=== PATIENT | male | born 1950 | race Caucasian/White ===

== ENCOUNTER 2024-01-31 21:38 | Inpatient (IN) | payer OTHER ==
[2024-01-31 23:49] LABS: URINE APPEARANCE CLEAR; URINE BILIRUBIN NEGATIVE (NEGATIVE); URINE COLOR YELLOW; URINE GLUCOSE (UA) NEGATIVE (NEGATIVE); URINE KETONE NEGATIVE (NEGATIVE); URINE LEUK ESTERASE NEGATIVE (NEGATIVE); URINE NITRITE NEGATIVE (NEGATIVE); URINE PROTEIN NEGATIVE (NEGATIVE); URINE UROBILINOGEN 0.2 mg/dL (0.2-1.0)
[2024-01-31 23:59] LABS: BASO % 0.3 % (0-2.0); EOS % 1.6 % (0-4.5); HEMATOCRIT 38.7 % (35.4-49); HEMOGLOBIN 13.2 GM/dL (11.7-16.9); LYMPH % 6.4 % (8-40); MCHC 34.1 g/dl (32.0-35.9); MEAN CELL VOLUME 90.8 fl (80-96); MEAN PLT VOLUME 7.1 fl (7.5-11.1); MONO % 9.5 % (3.8-10.2); NEUT % 82.2 % (42.8-82.8); PLATELET COUNT 176 10^3/uL (134-434); RBC 4.26 M/mm3 (4.00-5.60); RDW 14.4 % (11.9-15.9); WHITE BLOOD COUNT 4.5 K/mm3 (4.0-10.0)
[2024-02-01 00:22] LABS: POTASSIUM 3.5 mmol/L (3.5-5.1)
[2024-02-01 00:26] LABS: ALBUMIN 3.3 g/dl (3.4-5.0); BLOOD UREA NITROGEN 19.5 mg/dL (7-18); CALCIUM 9.3 mg/dL (8.5-10.1)
[2024-02-01 00:29] LABS: CREATININE 0.9 mg/dL (0.55-1.3)
[2024-02-01 00:31] LABS: BILIRUBIN,TOTAL 0.6 mg/dL (0.2-1); TOT PROT 6.6 g/dl (6.4-8.2)
[2024-02-01] MEDS ORDERED: PIPERACILLIN/TAZOB 3.375 GM 3.375 GM/50 ML BAG IVPB ONE (08:10)
[2024-02-01] MEDS ORDERED: ACETAMINOPHEN INJECTION 100 ML ONE (08:34)
[2024-02-01] MEDS: PIPERACILLIN/TAZOB 3.375 GM 3.375 GM in DEXTROSE 5%-WATER - 50 ML IVPB ONE (08:39)
[2024-02-01] MEDS: SODIUM CHLORIDE 0.9% 500 ML INFUS.BAG IV ONE (08:39)
[2024-02-01] MEDS: ACETAMINOPHEN 1000 MG/100 ML BAG IVPB ONE (08:39)
[2024-02-01] MEDS: VANCOMYCIN PREMIX 1.5 GM 1,500 MG/300 ML BAG IVPB ONE (09:16)
[2024-02-01] MEDS: VANCOMYCIN HCL 1,500 MG in DEXTROSE 5%-WATER - 500 ML IVPB ONE (09:17)
[2024-02-01 12:31] LABS: HIV INTERPRETATION NEGATIVE (NEGATIVE)
[2024-02-01] MEDS ORDERED: ACETAMINOPHEN 325 MG TABLET (FP) ONE (14:16)
[2024-02-01] MEDS: ACETAMINOPHEN 325 MG TABLET (FP) PO PRN (14:30)
[2024-02-01 16:13] VITALS: BMI 26.9
[2024-02-01] MEDS ORDERED: INSULIN ASPART SLIDING SCALE (NOVOLOG) 1 VIAL SQ ONE (17:13)
[2024-02-01] MEDS: INSULIN ASPART SLIDING SCALE (NOVOLOG) 1 VIAL SQ SCH (17:16)
[2024-02-01] MEDS: HEPARIN NA (PORCINE) 5,000 UNITS/ML 1ML VIAL SQ SCH (21:53)
[2024-02-01] MEDS: BUDESONIDE/FORMETEROL FUMARATE 80/4.5 mcg INHALER IH SCH (21:58)
[2024-02-02] MEDS: TAMSULOSIN HCL 0.4 MG CAP PO SCH (09:13)
[2024-02-02] MEDS: FENOFIBRIC ACID 135 MG CAP PO SCH (09:13)
[2024-02-02] MEDS: FINASTERIDE 5 MG TABLET (FP) PO SCH (09:13)
[2024-02-02 09:39] LABS: BASO % 0.4 % (0-2.0); HEMATOCRIT 38.9 % (35.4-49); HEMOGLOBIN 13.3 GM/dL (11.7-16.9); LYMPH % 3.8 % (8-40); MCH 31.4 pg (25.7-33.7); MCHC 34.3 g/dl (32.0-35.9); MEAN CELL VOLUME 91.3 fl (80-96); MEAN PLT VOLUME 7.7 fl (7.5-11.1); MONO % 10.8 % (3.8-10.2); PLATELET COUNT 145 10^3/uL (134-434); RBC 4.26 M/mm3 (4.00-5.60); RDW 14.4 % (11.9-15.9); WHITE BLOOD COUNT 3.8 K/mm3 (4.0-10.0)
[2024-02-02 09:51] LABS: POTASSIUM 3.4 mmol/L (3.5-5.1)
[2024-02-02 10:00] LABS: ALBUMIN 3.2 g/dl (3.4-5.0); CALCIUM 8.9 mg/dL (8.5-10.1); TOT PROT 6.4 g/dl (6.4-8.2)
[2024-02-02 10:04] LABS: BILIRUBIN,TOTAL 0.9 mg/dL (0.2-1); CREATININE 0.8 mg/dL (0.55-1.3)
[2024-02-02] MEDS: POTASSIUM CHLORIDE ORAL LIQUID 20 MEQ/15 ML PO ONE (11:35)
[2024-02-02] MEDS: POLYETHYLENE GLYCOL (HEALTHYLAX) 3350 17 GM PACKET PO SCH (13:05)
[2024-02-02] MEDS: PIPERACILLIN/TAZOB 3.375 GM 3.375 GM in DEXTROSE 5%-WATER - 50 ML IVPB SCH (14:47)
[2024-02-02] MEDS: amLODIPine BESYLATE 5 MG TABLET (FP) PO SCH (20:32)
[2024-02-02] MEDS: MAG HYDROX/AL HYDROX/SIMETH 30 ML UNIT-DOSE CUP PO ONE (22:55)
[2024-02-03 08:24] LABS: POTASSIUM 3.6 mmol/L (3.5-5.1)
[2024-02-03 08:29] LABS: ALBUMIN 2.8 g/dl (3.4-5.0); CALCIUM 8.6 mg/dL (8.5-10.1)
[2024-02-03 08:30] LABS: BLOOD UREA NITROGEN 15.6 mg/dL (7-18); HEMATOCRIT 36.5 % (35.4-49); HEMOGLOBIN 12.5 GM/dL (11.7-16.9); MCH 31.1 pg (25.7-33.7); MCHC 34.3 g/dl (32.0-35.9); MEAN CELL VOLUME 90.8 fl (80-96); MEAN PLT VOLUME 8.1 fl (7.5-11.1); PLATELET COUNT 128 10^3/uL (134-434); RBC 4.02 M/mm3 (4.00-5.60); RDW 14.5 % (11.9-15.9); WHITE BLOOD COUNT 3.4 K/mm3 (4.0-10.0)
[2024-02-03 08:32] LABS: CREATININE 0.8 mg/dL (0.55-1.3)
[2024-02-03 08:34] LABS: BILIRUBIN,TOTAL 0.8 mg/dL (0.2-1); TOT PROT 5.9 g/dl (6.4-8.2)
[2024-02-03 09:51] LABS: ANISOCYTOSIS 0; MACROCYTOSIS 0
[2024-02-03] MEDS ORDERED: INSULIN ASPART SLIDING SCALE (NOVOLOG) 1 VIAL SQ ONE (13:04)
[2024-02-03] MEDS: PANTOPRAZOLE 40 MG TABLET PO ONE (16:27)
[2024-02-03] MEDS: MAG HYDROX/AL HYDROX/SIMETH 30 ML UNIT-DOSE CUP PO PRN (16:27)
[2024-02-04] MEDS: PANTOPRAZOLE 40 MG TABLET PO SCH (09:14)
[2024-02-04 10:25] LABS: BASO % 0.5 % (0-2.0); EOS % 4.1 % (0-4.5); HEMATOCRIT 36.4 % (35.4-49); HEMOGLOBIN 12.4 GM/dL (11.7-16.9); MCH 30.8 pg (25.7-33.7); MCHC 33.9 g/dl (32.0-35.9); MEAN CELL VOLUME 90.8 fl (80-96); MEAN PLT VOLUME 8.6 fl (7.5-11.1); MONO % 12.3 % (3.8-10.2); NEUT % 75.1 % (42.8-82.8); PLATELET COUNT 145 10^3/uL (134-434); RBC 4.01 M/mm3 (4.00-5.60); RDW 14.6 % (11.9-15.9); WHITE BLOOD COUNT 3.1 K/mm3 (4.0-10.0)
[2024-02-04 10:39] LABS: POTASSIUM 3.6 mmol/L (3.5-5.1)
[2024-02-04 10:41] LABS: CALCIUM 8.5 mg/dL (8.5-10.1)
[2024-02-04 10:42] LABS: ALBUMIN 2.9 g/dl (3.4-5.0)
[2024-02-04 10:46] LABS: BLOOD UREA NITROGEN 14.9 mg/dL (7-18); MAGNESIUM 2.1 mg/dL (1.8-2.4)
[2024-02-04 10:49] LABS: CREATININE 0.6 mg/dL (0.55-1.3)
[2024-02-04 10:52] LABS: BILIRUBIN,TOTAL 0.9 mg/dL (0.2-1); TOT PROT 6.1 g/dl (6.4-8.2)
[2024-02-04] MEDS ORDERED: INSULIN ASPART SLIDING SCALE (NOVOLOG) 1 VIAL SQ ONE ×2 (16:56→21:26)
[2024-02-04] MEDS: predniSONE 20 MG TABLET (UD) PO SCH (18:40)
[2024-02-05 06:09] LABS: CMV IgM 40.5 AU/mL (0.0-29.9)
[2024-02-05 09:58] LABS: INR 1.13 (0.83-1.09); PROTHROMBIN TIME (PATIENT) 12.7 SEC (9.7-13.0)
[2024-02-05 09:59] LABS: HEMATOCRIT 42.2 % (35.4-49); HEMOGLOBIN 14.2 GM/dL (11.7-16.9); MCH 31.2 pg (25.7-33.7); MCHC 33.7 g/dl (32.0-35.9); MEAN CELL VOLUME 92.5 fl (80-96); MEAN PLT VOLUME 8.4 fl (7.5-11.1); PLATELET COUNT 169 10^3/uL (134-434); RBC 4.56 M/mm3 (4.00-5.60); RDW 14.8 % (11.9-15.9); WHITE BLOOD COUNT 3.1 K/mm3 (4.0-10.0)
[2024-02-05] MEDS ORDERED: LOSARTAN POTASSIUM 50 MG TABLET PO SCH (10:00)
[2024-02-05 10:15] LABS: POTASSIUM 4.1 mmol/L (3.5-5.1)
[2024-02-05 10:20] LABS: ALBUMIN 3.1 g/dl (3.4-5.0); CALCIUM 9.1 mg/dL (8.5-10.1)
[2024-02-05 10:21] LABS: BLOOD UREA NITROGEN 15.7 mg/dL (7-18); MAGNESIUM 2.2 mg/dL (1.8-2.4)
[2024-02-05 10:24] LABS: CREATININE 0.8 mg/dL (0.55-1.3)
[2024-02-05 10:25] LABS: BILIRUBIN,TOTAL 0.7 mg/dL (0.2-1); TOT PROT 6.9 g/dl (6.4-8.2)
[2024-02-05] MEDS: HYDROCHLOROTHIAZIDE 25 MG TABLET (FP) PO SCH (10:29)
[2024-02-05 10:41] LABS: ANISOCYTOSIS 0; MACROCYTOSIS 0
[2024-02-05] MEDS ORDERED: INSULIN ASPART SLIDING SCALE (NOVOLOG) 1 VIAL SQ ONE (21:28)
[2024-02-06 10:07] LABS: BASO % 0.5 % (0-2.0); EOS % 0.4 % (0-4.5); HEMATOCRIT 37.7 % (35.4-49); HEMOGLOBIN 12.6 GM/dL (11.7-16.9); LYMPH % 7.7 % (8-40); MCH 30.6 pg (25.7-33.7); MCHC 33.4 g/dl (32.0-35.9); MEAN CELL VOLUME 91.8 fl (80-96); MEAN PLT VOLUME 8.6 fl (7.5-11.1); MONO % 6.3 % (3.8-10.2); NEUT % 85.1 % (42.8-82.8); PLATELET COUNT 202 10^3/uL (134-434); RBC 4.11 M/mm3 (4.00-5.60); RDW 14.7 % (11.9-15.9)
[2024-02-06 10:21] LABS: POTASSIUM 3.4 mmol/L (3.5-5.1)
[2024-02-06 10:24] LABS: CALCIUM 9.3 mg/dL (8.5-10.1)
[2024-02-06 10:25] LABS: ALBUMIN 3.2 g/dl (3.4-5.0); BLOOD UREA NITROGEN 19.6 mg/dL (7-18)
[2024-02-06 10:28] LABS: CREATININE 0.8 mg/dL (0.55-1.3)
[2024-02-06 10:29] LABS: BILIRUBIN,TOTAL 0.6 mg/dL (0.2-1)
[2024-02-06] MEDS ORDERED: INSULIN ASPART SLIDING SCALE (NOVOLOG) 1 VIAL SQ ONE ×2 (12:07→21:14)
[2024-02-06] MEDS: POTASSIUM CHLORIDE ORAL LIQUID 20 MEQ/15 ML PO ONE (12:16)
[2024-02-06 14:33] LABS: HIV INTERPRETATION NEGATIVE (NEGATIVE)
[2024-02-06 14:43] VITALS: RESP 18
[2024-02-07 06:19] VITALS: BP 139/69; PULSE 64; TEMP 97.5
[2024-02-07 10:00] LABS: BASO % 0.6 % (0-2.0); EOS % 0.8 % (0-4.5); HEMATOCRIT 37.5 % (35.4-49); HEMOGLOBIN 12.9 GM/dL (11.7-16.9); LYMPH % 7.8 % (8-40); MCH 30.9 pg (25.7-33.7); MCHC 34.4 g/dl (32.0-35.9); MEAN PLT VOLUME 8.2 fl (7.5-11.1); MONO % 11.1 % (3.8-10.2); NEUT % 79.7 % (42.8-82.8); PLATELET COUNT 225 10^3/uL (134-434); RBC 4.16 M/mm3 (4.00-5.60); RDW 14.9 % (11.9-15.9)
[2024-02-07 10:12] LABS: POTASSIUM 3.8 mmol/L (3.5-5.1)
[2024-02-07 10:19] LABS: ALBUMIN 3.2 g/dl (3.4-5.0); BLOOD UREA NITROGEN 19.1 mg/dL (7-18); CALCIUM 9.5 mg/dL (8.5-10.1)
[2024-02-07 10:22] LABS: CREATININE 0.8 mg/dL (0.55-1.3)
[2024-02-07 10:24] LABS: BILIRUBIN,TOTAL 0.9 mg/dL (0.2-1)
[2024-02-07] MEDS: INSULIN (LEVEMIR) 100 UNITS/ML UNITS SQ ONE (10:54)
[2024-02-07 15:09] LABS: WEST NILE VIRUS AB SERUM,IGM Negative (Negative)
== END 2024-02-07 11:34 | disposition home or self-care (01) | DRG 864 ==
LOC: JER 21:38 → JERBED 02-01 11:04 → OBSVTOIN 02-01 12:50 → J8W 02-01 14:40
PROVIDERS: ADMIT Internal Medicine; ATTEND Nurse Practitioner Family
DX: R50.2 Drug induced fever (principal); K65.1 Peritoneal abscess; D84.9 Immunodeficiency, unspecified; R65.10 Systemic inflammatory response syndrome (SIRS) of non-infectious origin without acute organ dysfunction; C22.8 Malignant neoplasm of liver, primary, unspecified as to type; R50.9 Fever, unspecified; E11.9 Type 2 diabetes mellitus without complications; I10 Essential (primary) hypertension; E78.5 Hyperlipidemia, unspecified; N40.0 Benign prostatic hyperplasia without lower urinary tract symptoms; J45.909 Unspecified asthma, uncomplicated; N20.0 Calculus of kidney; T45.1X5A Adverse effect of antineoplastic and immunosuppressive drugs, initial encounter
CPT/HCPCS: 0241U-QW; 36415; 71045-TC-FY; 74177-TC; 80053; 81003; 82550; 82962; 83735; 85025; 85610; 86480; 86644; 86645; 86664; 86704; 86708; 86788; 86789; 86803; 87040; 87086; 87340; 87389; 87496; 87517; 87529; 87799; 99285-25; G0378; J0131; J1644; Q9967